=== PATIENT | male | born 1970 | race Caucasian/White ===

== ENCOUNTER 2019-11-11 07:49 | Emergency (ER) | payer BC, OTHER ==
[~2019-11-11] VITALS: Ht 182.9 cm; Wt 119.9 kg
[2019-11-11] MEDS ORDERED: ALEVE (07:56)
[2019-11-11] MEDS ORDERED: LIDOCAINE 5% (LIDODERM) PATCH TD ONE (08:15)
[2019-11-11] MEDS ORDERED: ALPR0.5T3 (08:51)
[2019-11-11] MEDS ORDERED: CYCL5TAB PO (09:36)
[2019-11-11] MEDS ORDERED: LIDO5DIS41 TOP (09:40)
[2019-11-11 09:53] VITALS: BP 138/100
--- NOTE | 2019-11-11 12:20 | REP ---
RIGHT SHOULDER, THREE VIEWS: There is no evidence of an acute fracture, dislocation or intrinsic bone disease. IMPRESSION: No fracture or dislocation. Electronically Signed by Lucas Conklin MD 11/11/2019 10:30 P
[2019-11-11] MEDS ORDERED: **NOTE PATIENT COMMENT** MISC XX SCH (21:00)
== END 2019-11-11 09:55 | disposition home or self-care (01) ==
LOC: M ED 07:49
DX: M25.511 Pain in right shoulder (principal); I10 Essential (primary) hypertension; G47.30 Sleep apnea, unspecified; Z79.899 Other long term (current) drug therapy

== ENCOUNTER → 2021-01-13 | Outpatient (REF) | payer BC, OTHER ==
[~2021-01-13] MED LIST: ALEVE; ALPR0.5T3; CYCL5TAB PO; LIDO5DIS41 TOP
== END ==
LOC: M LAB REF 13:23
PROVIDERS: ATTEND Internal Medicine
DX: E29.1 Testicular hypofunction (principal)

== ENCOUNTER 2022-10-20 09:08 | Emergency (ER) | payer OTHER, BC ==
[~2022-10-20] VITALS: Ht 182.9 cm; Wt 108.1 kg
[2022-10-20 09:09] VITALS: BP 175/95
[2022-10-20] MEDS ORDERED: DULO1CAP6 PO (09:20)
[2022-10-20] MEDS ORDERED: IBUP200C25 PO (09:20)
[2022-10-20] MEDS ORDERED: LISI10TA22 PO (09:20)
== END 2022-10-20 10:18 | disposition home or self-care (01) ==
LOC: M ED 09:08
DX: S60.032A Contusion of left middle finger without damage to nail, initial encounter (principal); S67.193A Crushing injury of left middle finger, initial encounter; W23.0XXA Caught, crushed, jammed, or pinched between moving objects, initial encounter; I10 Essential (primary) hypertension; Y99.0 Civilian activity done for income or pay; Z79.811 Long term (current) use of aromatase inhibitors; Z79.899 Other long term (current) drug therapy

== ENCOUNTER 2023-11-03 13:55 | Observation (INO) | payer BC, OTHER ==
[~2023-11-03] VITALS: Ht 185.4 cm; Wt 113.4 kg
[~2023-11-03 13:55] MED LIST changes: +DULO1CAP6 PO; +IBUP200C25 PO; +LISI10TA22 PO
[2023-11-03 14:43] LABS: BASO # 0.1 10^3/uL (0.0-0.2); BASO % 0.6 % (0.0-1.0); EOS # 0.1 10^3/uL (0.0-0.5); HEMATOCRIT 46.9 % (42.0-52.0); HEMOGLOBIN 16.1 g/dl (13.5-17.5); LYMPH # 2.2 10^3/uL (1.5-5.0); LYMPH % 27.8 % (24.0-44.0); MEAN CORPUSCULAR HEMOGLOBIN 31.4 pg (27.0-33.0); MEAN CORPUSCULAR HGB CONC 34.3 g/dl (32.0-36.5); MEAN CORPUSCULAR VOLUME 91.6 fl (80.0-96.0); MONO # 0.5 10^3/uL (0.0-0.8); MONO % 6.2 % (2.0-8.0); NEUTROPHILS % 63.9 % (36.0-66.0); PLATELET COUNT, AUTOMATED 289 10^3/uL (150-450); RED BLOOD COUNT 5.12 10^6/uL (4.30-6.10); WHITE BLOOD COUNT 7.9 10^3/uL (4.0-10.0)
[2023-11-03 15:04] LABS: THYROID STIMULATING HORMONE 3.202 uIU/ML (0.55-4.78)
[2023-11-03 15:09] LABS: C REACTIVE PROTEIN QUANTITATIV < 0.40 MG/DL (<1.0); LIPASE 39 U/L (12-53)
[2023-11-03 15:11] LABS: ALBUMIN 3.9 G/DL (3.2-5.2); ALKALINE PHOSPHATASE 77 U/L (46-116); ALT/SGPT 40 U/L (7.0-40); AST/SGOT 33 U/L (<34); BILIRUBIN,DIRECT < 0.1 MG/DL (<0.4); BILIRUBIN,TOTAL 0.5 MG/DL (0.3-1.2); BLOOD UREA NITROGEN 16 MG/DL (9-23); CALCIUM LEVEL 8.7 MG/DL (8.5-10.1); CARBON DIOXIDE LEVEL 26 MMOL/L (20-31); CHLORIDE LEVEL 102 MMOL/L (98-107); CREATININE FOR GFR 1.12 MG/DL (0.70-1.30); GLOMERULAR FILTRATION RATE > 60.0 (>56); GLUCOSE, FASTING 156 MG/DL (60-100); POTASSIUM SERUM 4.5 MMOL/L (3.5-5.1); SODIUM LEVEL 136 MMOL/L (136-145); TOTAL PROTEIN 6.9 G/DL (5.7-8.2)
[2023-11-03 15:13] LABS: FREE T4 0.85 NG/DL (0.89-1.76)
[2023-11-03 15:18] LABS: CPK CREATINE PHOSPHOKINASE 132 U/L (46-171); MB/CK RELATIVE INDEX 0.75 (< OR =4)
[2023-11-03] MEDS ORDERED: ISOVUE-370 76% 100ML VIAL As Ordered ONE (15:28)
[2023-11-03 15:41] LABS: AMPHETAMINES LEVEL URINE NEGATIVE (NEGATIVE); BARBITURATES URINE NEGATIVE (NEGATIVE); BENZODIAZEPINES URINE NEGATIVE (NEGATIVE); COCAINE METABOLITE URINE NEGATIVE (NEGATIVE); METHADONE URINE NEGATIVE (NEGATIVE); OPIATES URINE NEGATIVE (NEGATIVE); PHENCYCLIDINE URINE NEGATIVE (NEGATIVE)
[2023-11-03] MEDS: MULTIVITAMIN -ADULT INJECTION 10 ML, THIAMINE INJection 100 MG, FOLIC ACID 1 MG in NS 1... IV ONE (15:43)
[2023-11-03 15:53] LABS: CANNABINOIDS URINE POSITIVE (NEGATIVE)
[2023-11-03 16:00] LABS: INR 0.98; PROTHROMBIN TIME 12.7 SECONDS (12.5-14.5)
[2023-11-03] MEDS: NS 1,000 ML IV ONE (16:25)
[2023-11-03] MEDS ORDERED: LORazepam 2 MG TAB PO PRN (17:55)
[2023-11-03] MEDS ORDERED: TRET0.0540 TOP (19:29)
[2023-11-03] MEDS ORDERED: HOME MED LIST COMPLETE! XX SCH (19:30)
[2023-11-03 22:00] VITALS: BP 121/75
[2023-11-03 23:29] VITALS: BP 127/68; TEMP 97.3; O2SAT 95
[2023-11-04 00:49] LABS: CK-MB VALUE MASS < 1.0 NG/ML (<3.6)
[2023-11-04 01:02] LABS: CPK CREATINE PHOSPHOKINASE 105 U/L (46-171); MB/CK RELATIVE INDEX 0.95 (< OR =4)
[2023-11-04 03:53] VITALS: BP 124/77; TEMP 97.4; O2SAT 96
[2023-11-04 06:00] VITALS: BP 132/78
[2023-11-04 07:50] VITALS: BP 139/87; TEMP 97.6; O2SAT 99
[2023-11-04 08:23] LABS: HEMATOCRIT 44.8 % (42.0-52.0); HEMOGLOBIN 15.2 g/dl (13.5-17.5); MEAN CORPUSCULAR HEMOGLOBIN 31.1 pg (27.0-33.0); MEAN CORPUSCULAR HGB CONC 33.9 g/dl (32.0-36.5); MEAN CORPUSCULAR VOLUME 91.8 fl (80.0-96.0); PLATELET COUNT, AUTOMATED 217 10^3/uL (150-450); RED BLOOD COUNT 4.88 10^6/uL (4.30-6.10); WHITE BLOOD COUNT 6.1 10^3/uL (4.0-10.0)
[2023-11-04 08:42] VITALS: BP 139/87
[2023-11-04] MEDS: DULoxetine 30MG CAPSULE (CYMBALTA) PO SCH (08:42)
[2023-11-04] MEDS: ENOXAPARIN 40MG/0.4ML SYRINGE (J1650 PER 10MG) SC SCH (08:42)
[2023-11-04 08:44] LABS: LIPASE 35 U/L (12-53)
[2023-11-04 08:45] LABS: CK-MB VALUE MASS < 1.0 NG/ML (<3.6)
[2023-11-04] MEDS ORDERED: SENOKOT S TAB PO PRN (08:55)
[2023-11-04] MEDS ORDERED: MIRALAX *UNIT DOSE* 17GM PACKET PO PRN (08:55)
[2023-11-04] MEDS: ONDANSETRON 4MG TAB PO PRN (09:02)
[2023-11-04] MEDS: PANTOPRAZOLE 40MG TAB (PROTONIX) PO ONE (09:02)
[2023-11-04 09:03] LABS: ALBUMIN 3.4 G/DL (3.2-5.2); ALKALINE PHOSPHATASE 67 U/L (46-116); ALT/SGPT 28 U/L (7.0-40); AST/SGOT 15 U/L (<34); BILIRUBIN,TOTAL 0.7 MG/DL (0.3-1.2); BLOOD UREA NITROGEN 11 MG/DL (9-23); CALCIUM LEVEL 8.9 MG/DL (8.5-10.1); CARBON DIOXIDE LEVEL 28 MMOL/L (20-31); CHLORIDE LEVEL 108 MMOL/L (98-107); CREATININE FOR GFR 0.92 MG/DL (0.70-1.30); GLOMERULAR FILTRATION RATE > 60.0 (>56); GLUCOSE, FASTING 98 MG/DL (60-100); MAGNESIUM LEVEL 2.1 MG/DL (1.8-2.4); POTASSIUM SERUM 4.1 MMOL/L (3.5-5.1); SODIUM LEVEL 140 MMOL/L (136-145); TOTAL PROTEIN 6.2 G/DL (5.7-8.2)
[2023-11-04 09:04] LABS: CPK CREATINE PHOSPHOKINASE 109 U/L (46-171); MB/CK RELATIVE INDEX 0.91 (< OR =4)
== END 2023-11-04 12:18 | disposition home or self-care (01) ==
LOC: M ED 13:55 → EDBD 13:55 → M ED INP 13:56 → M PCU 21:39
PROVIDERS: ADMIT Family Medicine; ATTEND Family Medicine
DX: R55 Syncope and collapse (principal); I10 Essential (primary) hypertension; E78.5 Hyperlipidemia, unspecified; Z79.899 Other long term (current) drug therapy
CPT/HCPCS: 36415; 74177; 80048; 80053; 80076; 80307; 82077; 82550; 82553; 83605; 83690; 83735; 84439; 84443; 84484; 85025; 85027; 85610; 86140; 93005; 93041; 94760; 96361; 96374; 97161; 99285; J3411; Q9967

== ENCOUNTER → 2023-11-06 | Outpatient (REF) | payer OTHER ==
[~2023-11-06] MED LIST changes: +TRET0.0540 TOP
[2023-11-06 18:26] LABS: CK-MB VALUE MASS < 1.0 NG/ML (<3.6)
[2023-11-06 18:33] LABS: CPK CREATINE PHOSPHOKINASE 84 U/L (46-171); MB/CK RELATIVE INDEX 1.19 (< OR =4)
== END ==
LOC: M LAB REF 16:34
PROVIDERS: ATTEND Physician Assistant Medical
DX: R07.89 Other chest pain (principal)

== ENCOUNTER → 2023-11-16 | Outpatient (CLI) | payer BC ==
[~2023-11-16] MED LIST changes: +PROHANCE 279.3MG/ML 15ML VIAL As Ordered ONE; +PROHANCE 279.3MG/ML 5ML VIAL As Ordered ONE
== END ==
LOC: M RAD 08:45
PROVIDERS: ATTEND Physician Assistant Medical
DX: R55 Syncope and collapse (principal)
CPT/HCPCS: 70553; A9576

== ENCOUNTER → 2023-11-27 | Outpatient (CLI) | payer BC ==
[~2023-11-27] MED LIST changes: -PROHANCE 279.3MG/ML 15ML VIAL As Ordered ONE; -PROHANCE 279.3MG/ML 5ML VIAL As Ordered ONE
== END ==
LOC: M CARPUL 08:08
PROVIDERS: ATTEND Internal Medicine
DX: R55 Syncope and collapse (principal)

== ENCOUNTER → 2024-08-16 | Outpatient (CLI) | payer BC ==
[~2024-08-16] MED LIST changes: -CYCL5TAB PO; +CYCL5TAB4 PO
== END ==
LOC: M SOG 08:23
PROVIDERS: ATTEND Physician Assistant
DX: M65.342 Trigger finger, left ring finger (principal)